=== PATIENT | male | born 1970 | race Hispanic/Latino ===

== ENCOUNTER 2017-01-01 13:41 | Emergency (ER) | payer SELFPAY ==
[2017-01-01] MEDS ORDERED: Lorazepam 2 MG/ML VIAL ONE (14:34)
[2017-01-01 15:04] LABS: #Basophils 0.1 thou/uL (0.0-0.2); #Neutrophils 12.5 thou/uL (1.40-6.50); %Basophils 0.4 % (0.0-1.0); %Eosinophils 0.3 % (0.0-10.0); %Monocytes 6.2 % (0.0-10.0); Hematocrit 46.1 % (42.0-52.0); Mean Platelet Volume 8.1 fL (7.4-10.4); Red Blood Cell (RBC) Count 4.88 mill/uL (4.70-6.10); White Blood Cell (WBC) Count 15.6 thou/uL (4.8-10.8)
[2017-01-01 15:19] LABS: Lactic Acid - Sepsis 1.1 mmol/L (0.5-2.2)
[2017-01-01 15:25] LABS: ALT (SGPT) 14 U/L (8-55); AST (SGOT) 23 U/L (5-34); Alkaline Phosphatase 125 U/L (40-150); Anion Gap 14 mmol/L (10-20); BUN (Urea Nitrogen) 10 mg/dL (8.9-20.6); Bilirubin, Total 0.7 mg/dL (0.2-1.2); Calc. Creatinine Clearance 0 mL/min (70-130); Calcium 9.6 mg/dL (7.8-10.44); Carbon Dioxide 23 mmol/L (22-29); Chloride 104 mmol/L (98-107); Estimated GFR-MDRD Greater than 90; Globulin 3.8 g/dL (2.4-3.5); Protein, Total 8.2 g/dL (6.0-8.3)
[2017-01-01] MEDS ORDERED: Acetaminophen 500 MG TAB ONE (16:01)
[2017-01-01 16:28] LABS: Amphetamine Not Detected (NotDetected); Methadone Not Detected (NotDetected); Methamphetamine Not Detected (NotDetected)
--- NOTE | 2017-01-01 17:08 | RAD ---
RADIOGRAPH CHEST 1 VIEW: HISTORY: 46-year-old male with acute dyspnea for 2 days. FINDINGS: There is no air space density, pulmonary edema, or pneumothorax. The lateral costophrenic angles ar e sharp. IMPRESSION: No acute pulmonary findings. jn [] POS: [facility]
== END 2017-01-01 16:18 | disposition home or self-care (01) ==
LOC: ERS 13:41
DX: F41.9 Anxiety disorder, unspecified (principal); F17.210 Nicotine dependence, cigarettes, uncomplicated
CPT/HCPCS: 36415; 71010; 80053; 80306; 83605; 85025; 87040; 93005; 94640; 96374; J2060; J7620